=== PATIENT | female | born 1960 | race Caucasian/White ===

== ENCOUNTER → 2018-03-07 | Outpatient (CLI) | payer MEDICARE, MEDICAID ==
[~2018-03-07] MED LIST: ACETAMINOPHEN-1 EAC1 PO; AMITRIPTYLINE H25 M2 PO; ATIVAN1 MG PO; B12INJ IM; BUSPIRONE HCL10 MG PO; CEPHALEXIN 500500 M3 PO; FLONASE 0.05%50 MCG NASAL; HYDROCODON-ACE1 EA12 PO; HYDROXYZINE HCL25 M1 PO; LIDODERM1 EACH TRANSDERM; MACROBID 100 M100 M2 PO; MAXALT MLT ODT10 M1 PO; MAXALT10 MG PO; MULTIVITAMINS1 EAC7 PO; NYSTATIN1 EA10 TOP; PROAIR HFA8.5 GM INH; PROMETHAZINE D480 ML PO; TESSALON PERLE100 MG PO; TOPAMAX 25 MG T25 M1 PO; TRAMADOL 50 MG50 MG PO; VITAMIN D2000 UNIT PO; ZANAFLEX4 MG PO
[2018-03-07 12:55] VITALS: BP 128/78
--- NOTE | 2018-03-07 14:52 | NUR ---
ARRIVED AMBULATORY. REVIEW OF PICC LINE RISK AND BENIFIT WELL INSERTION AND CARE REVIEWED. VOICED UNDERSTANDING AND DENIES QUESTION. CONSENT OBTAINED. ORDER NOTED. SINGLE LUMAN POWER INJECTABLE PICC PLACED TO RIGHT UPPER BASILIC PER HOSPITAL POLICY. LINE TRIMMED TO 42CM AND ADVANCED 41CM LEAVING 1CM EXTERNAL. TIP COMFIRMED WITH AWILDA 3CG. LINE SECURED AND RELEASED FOR USE. 1ST DOSE OF IV ANTIBIOTIC COMPLETED VIA PICC. TOLERATED WELL. PT TO CONTINE ATB THERAPY AT HOME. DENEIS QUESTIONS OR NEEDS AT DISCHARGE.
== END | disposition home or self-care (01) ==
LOC: M.INFUS 03-06 14:00 → M.INT 13:00
DX: Z45.2 Encounter for adjustment and management of vascular access device (principal); Z87.440 Personal history of urinary (tract) infections; Z79.899 Other long term (current) drug therapy; Z79.891 Long term (current) use of opiate analgesic; Z88.8 Allergy status to other drugs, medicaments and biological substances

== ENCOUNTER 2018-05-26 08:09 | Inpatient (IN) | payer MEDICARE ==
[~2018-05-26] VITALS: Ht 160 cm; Wt 93.9 kg
[~2018-05-26 08:09] MED LIST changes: -BUSPIRONE HCL10 MG PO; -HYDROXYZINE HCL25 M1 PO; -MACROBID 100 M100 M2 PO; -MAXALT MLT ODT10 M1 PO; -MAXALT10 MG PO; -NYSTATIN1 EA10 TOP; -TOPAMAX 25 MG T25 M1 PO
[2018-05-26 08:47] LABS: ABSOLUTE BASOPHILS 0.1 thou/uL (0.0-0.2); ABSOLUTE EOSINOPHILS 0.4 thou/uL (0.0-0.7); ABSOLUTE LYMPHOCYTES 1.9 thou/uL (0.8-5.3); ABSOLUTE MONOCYTES 0.5 thou/uL (0.0-1.2); ABSOLUTE NEUTROPHILS 3.3 thou/uL (1.6-8.1); BASOPHILS 1.1 %; EOSINOPHILS 6.9 %; HEMATOCRIT 38.2 % (37.0-47.0); HEMOGLOBIN 12.4 gm/dL (12.0-15.0); LYMPHOCYTES 30.6 %; MCH 27.7 pg (26.0-34.0); MCHC 32.4 g/dL (28.0-37.0); MCV 85.4 fL (80.0-100.0); MONOCYTES 8.1 %; MPV 8.5 fl. (7.2-11.1); NUCLEATED RBCS 0 /100WBC; PLATELET COUNT* 236 thou/uL (150-400); POLYS 53.3 %; RBC 4.47 mil/uL (4.20-5.00); RDW-CV 13.9 % (10.5-14.5); WBC 6.2 thou/uL (4.0-11.0)
[2018-05-26 08:54] LABS: ANION GAP 3 mmol/L (7-16); BUN 12 mg/dL (7-18); CALCIUM 9.5 mg/dL (8.5-10.1); CHLORIDE 104 mmol/L (98-107); CO2 30 mmol/L (21-32); CREATININE 0.9 mg/dL (0.6-1.3); GLUCOSE 129 mg/dL (70-99); POTASSIUM 3.9 mmol/L (3.5-5.1); SODIUM 137 mmol/L (136-145)
[2018-05-26 09:13] LABS: ALBUMIN 2.9 g/dL (3.4-5.0); ALKALINE PHOSPHATASE 124 U/L (46-116); NT-PRO BRAIN NAT PEPTIDE 61 pg/mL (<300); SGOT 21 U/L (15-37); SGPT 21 U/L (30-65); TOTAL BILIRUBIN 0.2 mg/dL (<0.1-1.0); TOTAL PROTEIN 6.5 g/dL (6.4-8.2); TROPONIN-I LEVEL <0.06 ng/mL (<0.06)
[2018-05-26 09:53] VITALS: BP 90/60
[2018-05-26 10:15] VITALS: BP 100/63
[2018-05-26] MEDS ORDERED: NYSTATIN1 EA10 TOP (11:02)
[2018-05-26] MEDS ORDERED: BUSPIRONE HCL10 MG PO (11:02)
[2018-05-26] MEDS ORDERED: HYDROXYZINE HCL25 M1 PO (11:03)
[2018-05-26] MEDS ORDERED: MAXALT10 MG PO (11:08)
[2018-05-26] MEDS ORDERED: MACROBID 100 M100 M2 PO (11:09)
[2018-05-26 12:00] VITALS: BP 97/67
[2018-05-26 15:45] VITALS: BP 94/58
[2018-05-26 16:18] LABS: URINE BILIRUBIN NEGATIVE (Negative); URINE BLOOD NEGATIVE (Negative); URINE CLARITY SL CLOUDY; URINE COLOR YELLOW; URINE GLUCOSE-RANDOM NEGATIVE (Negative); URINE KETONES NEGATIVE (Negative); URINE LEUKOCYTES-REFLEX TRACE (Negative); URINE NITRITE-REFLEX NEGATIVE (Negative); URINE PROTEIN NEGATIVE (Negative)
[2018-05-26 16:26] LABS: AMP/METHAMP Negative (Negative); BARBITURATES Negative (Negative); BENZODIAZEPINES Negative (Negative); COCAINE Negative (Negative); METHADONE Negative (Negative); OPIATES Negative (Negative); PCP Negative (Negative); THC Negative (Negative)
[2018-05-26 16:32] LABS: CASTS None Seen /LPF (None Seen); CRYSTALS None Seen /LPF (None Seen); MUCUS 4-6 Moderate strn/LPF (None Seen); SQUAMOUS 4-10 Moderate /LPF (0-3); URINE WBC-REFLEX 6-15 Few /HPF (0-5)
[2018-05-26 16:33] LABS: URINE RBC None Seen /HPF (0-2)
--- NOTE | 2018-05-26 18:15 | NUR ---
ASSUMED CARE OF PATIENT AT 1006 AFTER TRANSFER TO ROOM 212 FROM EMERGENCY DEPARTMENT THIS MORNING. PATIENT AWAKE, ALERT, AND ORIENTED APPROPRIATELY. ADMISSION ASSESSMENT AND DOCUMENTATION COMPLETED AND CHARTED. COMPLAINED OF PAIN. GIVEN SCHEDULED AND PRN MEDICATIONS, SEE EMAR FOR DOCUMENTATION. VITAL SIGNS STABLE. OXYGEN SATURATION WITHIN NORMAL LIMITS ON ROOM AIR. PATIENT TRANSFERS AND AMBULATES WITH ASSISTANCE FROM STAFF. USES CALL LIGHT APPROPRIATELY, WITHIN REACH. NIH SCORES HAVE BEEN 0 THIS SHIFT. DENIES NEEDS AT THIS TIME. NURSING WILL CONTINUE TO MONITOR.
[2018-05-26 19:30] VITALS: BP 96/60
[2018-05-27] VITALS: BP 131/69
[2018-05-27 04:00] VITALS: BP 126/60
--- NOTE | 2018-05-27 04:43 | NUR ---
PT AAOX4, RESP REG AND UNLABORED SKIN W/D TIMOTHY CUTE DISTRESS NOTED. TELEMETRY PACK INTACT WITH ALARMS SET. PT HAS HAD A HEADACHE AND CHRONIC BACK PAIN THIS SHIFT, PT MEDICATED AND PAIN IMPROVED, BUTNOT COMPLETELY RELIEVED. VSS AND NO ACUTE CHANGES DURING SHIFT WILL CONTINUE TO MONITOR
[2018-05-27 05:17] LABS: ABSOLUTE EOSINOPHILS 0.5 thou/uL (0.0-0.7); ABSOLUTE LYMPHOCYTES 2.2 thou/uL (0.8-5.3); ABSOLUTE MONOCYTES 0.7 thou/uL (0.0-1.2); ABSOLUTE NEUTROPHILS 4.6 thou/uL (1.6-8.1); BASOPHILS 0.5 %; EOSINOPHILS 6.4 %; HEMATOCRIT 37.2 % (37.0-47.0); HEMOGLOBIN 12.1 gm/dL (12.0-15.0); LYMPHOCYTES 27.5 %; MCH 28.3 pg (26.0-34.0); MCHC 32.6 g/dL (28.0-37.0); MCV 86.9 fL (80.0-100.0); MONOCYTES 8.6 %; MPV 8.8 fl. (7.2-11.1); NUCLEATED RBCS 0 /100WBC; PLATELET COUNT* 189 thou/uL (150-400); RBC 4.28 mil/uL (4.20-5.00); WBC 8.1 thou/uL (4.0-11.0)
[2018-05-27 05:24] LABS: CALCIUM 8.9 mg/dL (8.5-10.1); CREATININE 0.8 mg/dL (0.6-1.3); POTASSIUM 3.9 mmol/L (3.5-5.1)
[2018-05-27 07:49] VITALS: BP 102/61
[2018-05-27] MEDS ORDERED: TOPAMAX 25 MG T25 M1 PO (09:34)
[2018-05-27 09:37] VITALS: BP 102/61
--- NOTE | 2018-05-27 10:37 | NUR ---
ASSUMED CARE OF PATIENT AFTER REPORT THIS MORNING. PATIENT AWAKE, ALERT, AND ORIENTED APPROPRIATELY. PHYSICAL ASSESSMENT COMPLETED AND CHARTED. COMPLAINED OF PAIN. GIVEN PRN AND SCHEDULED MEDICATIONS, SEE EMAR FOR DOCUMENTATION. VITAL SIGNS STABLE. OXYGEN SATURATION WITHIN NORMAL LIMITS ON ROOM AIR. PATIENT TRANSFERS AND AMBULATES WITH ASSISTANCE FROM STAFF AND CANE. USES CALL LIGHT APPROPRIATELY. RECEIVED ORDERS TO DISCHARGE PATIENT HOME. DISCHARGE PAPERWORK COMPLETED AND DISCUSSED WITH PATIENT. PRESCRIPTION GIVEN TO PATIENT AND DISCUSSED WELL. ALL PAPERWORK SIGNED AND ON PATIENT'S CHART. IV DISCONTINUED AND HEART MONITOR RETURNED TO NURSE'S STATION. WAITING FOR PATIENT'S RIDE AT THIS TIME. NURSING WILL CONTINUE TO MONITOR.
--- NOTE | 2018-05-27 11:09 | NUR ---
PATIENT'S RIDE ARRIVED AND PATIENT DISCHARGED AT 1106. ESCORTED TO FRONT DOOR VIA WHEELCHAIR WITH BELONGINGS BY THIS NURSE.
--- NOTE | 2018-05-27 12:37 | EKG ---
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
== END 2018-05-27 09:45 | disposition home or self-care (01) | DRG 102 ==
LOC: M.ERS 08:09 → M.TBA-ER 09:10 → M.2W 10:08
PROVIDERS: Family Medicine; ADMIT Internal Medicine
DX: G43.909 Migraine, unspecified, not intractable, without status migrainosus (principal); G93.40 Encephalopathy, unspecified; G45.9 Transient cerebral ischemic attack, unspecified; E44.1 Mild protein-calorie malnutrition; G89.29 Other chronic pain; F41.9 Anxiety disorder, unspecified; F32.9 Major depressive disorder, single episode, unspecified; G35 Multiple sclerosis; J45.909 Unspecified asthma, uncomplicated; K21.9 Gastro-esophageal reflux disease without esophagitis; E21.3 Hyperparathyroidism, unspecified; Z79.899 Other long term (current) drug therapy; Z88.6 Allergy status to analgesic agent; Z87.01 Personal history of pneumonia (recurrent); Z96.1 Presence of intraocular lens; Z98.891 History of uterine scar from previous surgery

== ENCOUNTER 2018-07-23 22:13 | Emergency (ER) | payer MEDICARE ==
[~2018-07-23] VITALS: Ht 160 cm; Wt 79.4 kg
[~2018-07-23 22:13] MED LIST changes: +BUSPIRONE HCL10 MG PO; +HYDROXYZINE HCL25 M1 PO; +MACROBID 100 M100 M2 PO; +MAXALT10 MG PO; +NYSTATIN1 EA10 TOP; +TOPAMAX 25 MG T25 M1 PO
[2018-07-23 23:23] LABS: ABSOLUTE EOSINOPHILS 0.1 thou/uL (0.0-0.7); ABSOLUTE LYMPHOCYTES 2.3 thou/uL (0.8-5.3); ABSOLUTE MONOCYTES 0.6 thou/uL (0.0-1.2); ABSOLUTE NEUTROPHILS 3.7 thou/uL (1.6-8.1); BASOPHILS 0.5 %; EOSINOPHILS 2.1 %; HEMATOCRIT 35.6 % (37.0-47.0); HEMOGLOBIN 11.7 gm/dL (12.0-15.0); LYMPHOCYTES 33.6 %; MCH 27.7 pg (26.0-34.0); MCHC 32.8 g/dL (28.0-37.0); MCV 84.3 fL (80.0-100.0); MPV 8.3 fl. (7.2-11.1); NUCLEATED RBCS 0 /100WBC; PLATELET COUNT* 252 thou/uL (150-400); POLYS 54.8 %; RBC 4.23 mil/uL (4.20-5.00); RDW-CV 15.1 % (10.5-14.5); WBC 6.7 thou/uL (4.0-11.0)
[2018-07-23 23:34] LABS: CALCIUM 8.5 mg/dL (8.5-10.1); POTASSIUM 3.8 mmol/L (3.5-5.1)
[2018-07-23 23:38] LABS: MAGNESIUM 1.8 mg/dL (1.8-2.4); TOTAL BILIRUBIN 0.1 mg/dL (<0.1-1.0); TOTAL PROTEIN 6.8 g/dL (6.4-8.2)
[2018-07-24] MEDS ORDERED: MAXALT MLT ODT10 M1 PO (01:15)
[2018-07-24 01:25] VITALS: BP 96/54
== END 2018-07-24 01:25 | disposition home or self-care (01) ==
LOC: M.ERS 22:13
PROVIDERS: Personal Emergency Response Attendant
DX: G43.909 Migraine, unspecified, not intractable, without status migrainosus (principal); J45.909 Unspecified asthma, uncomplicated; K21.9 Gastro-esophageal reflux disease without esophagitis; Z88.8 Allergy status to other drugs, medicaments and biological substances; Z87.01 Personal history of pneumonia (recurrent)

== ENCOUNTER → 2018-08-06 | Outpatient (CLI) | payer MEDICARE, OTHER, MEDICAID ==
[~2018-08-06] MED LIST changes: +MAXALT MLT ODT10 M1 PO
== END ==
LOC: M.CT 14:30
DX: K57.30 Diverticulosis of large intestine without perforation or abscess without bleeding (principal); J45.909 Unspecified asthma, uncomplicated; K21.9 Gastro-esophageal reflux disease without esophagitis